=== PATIENT | female | born 2000 | race Caucasian/White ===

== ENCOUNTER 2023-11-16 14:36 | Observation (INO) ==
[2023-11-16] MEDS ORDERED: Lactated Ringers 1000 ml BAG 1,000 ML IV ONE ×2 (15:42→17:18)
[2023-11-16 15:51] LABS: Urine Appearance Cloudy; Urine Bilirubin Negative (Negative); Urine Blood Negative (Negative); Urine Color Yellow; Urine Glucose Negative (Negative); Urine Ketones Trace (Negative); Urine Nitrite Negative (Negative); Urine Protein Negative (Negative); Urine Specific Gravity 1.014 (1.002-1.030); Urine Urobilinogen Negative (Negative)
[2023-11-16 16:23] LABS: Urine Bacteria 1+ (Absent); Urine Red Blood Cell 2+(6-10/hpf) (Absent); Urine Squamous Epithelial Cell Present (Absent); Urine White Blood Cell Trace(0-5/hpf) (Absent)
[2023-11-16 16:31] LABS: ALT 22 U/L (7-52); AST 24 U/L (13-39); Albumin 4.3 g/dL (3.2-5.2); Albumin/Globulin Ratio 1.3 (1-3); Alkaline Phosphatase 47 U/L (35-149); Anion Gap 11 mmol/L (2-16); Blood Urea Nitrogen 8 mg/dL (6-24); C Reactive Protein 110.64 mg/L (<8.01); CO2 Carbon Dioxide 21 mmol/L (22-32); Calcium 8.9 mg/dL (8.6-10.3); Chloride 102 mmol/L (101-111); Creatinine, Serum 0.77 mg/dL (0.51-0.95); Globulin 3.4 g/dL (2-4); Glucose 89 mg/dL (70-100); Lipase 21 U/L (11.0-82.0); Potassium 3.7 mmol/L (3.5-5.0); Sodium 134 mmol/L (135-145); Total Bilirubin 0.6 mg/dL (0.2-1.0); Total Protein 7.7 g/dL (6.4-8.9); eGFR CKD-EPI 113.2 (>60)
[2023-11-16] MEDS ORDERED: HYDROcodone/ACETAMIN 5/325 mg TAB PO ONE (16:47)
[2023-11-16 16:49] LABS: White Blood Count 2.7 10^3/uL (3.8-11.8)
[2023-11-16] MEDS ORDERED: cefTRIAXone 2 gm/50 mL D5W 2 GM/50 ML BAG IV ONE (17:18)
[2023-11-16 17:19] LABS: ABS Lymphocytes 0.5 10^3/uL (1.0-4.8); ABS Monocytes 0.5 10^3/uL (0.0-0.9); ABS Neutrophils 1.8 10^3/uL (1.5-7.6); ABS Nucleated RBC 0.02 10^3/ul; Hematocrit 39.2 % (35-45); Hemoglobin 13.4 g/dL (11.5-14.3); Lymphocyte % 18.3 %; Mean Corpuscular Hemoglobin 29.7 pg (27-33); Mean Corpuscular Hgb Conc 34.3 g/dL (31-36); Mean Corpuscular Volume 86.4 fL (80-97); Mean Platelet Volume 9.4 fL (7.5-11.2); Nucleated Red Blood Cells % 0.6 %/100WBC (0.0-0.8); Platelet Count 99 10^3/uL (150-450); RBC Morphology Normal (Normal); Red Blood Count 4.53 10^6/uL (3.63-4.92); Red Cell Distribution Width 12.8 % (12-17)
[2023-11-16 21:54] LABS: HCG Pregnancy < 0.60 mIU/mL
[2023-11-17] MEDS ORDERED: Lactated Ringers 1000 ml BAG 500 ML IV ONE (05:57)
[2023-11-17 06:11] LABS: Creatine Kinase 58 U/L (10-223)
[2023-11-17 06:43] LABS: Calcium 8.5 mg/dL (8.6-10.3); Creatinine, Serum 0.84 mg/dL (0.51-0.95); Magnesium 1.9 mg/dL (1.9-2.7); Potassium 3.7 mmol/L (3.5-5.0)
[2023-11-17 07:38] LABS: ABS Lymphocytes 0.6 10^3/uL (1.0-4.8); ABS Monocytes 0.3 10^3/uL (0.0-0.9); ABS Neutrophils 0.8 10^3/uL (1.5-7.6); Hematocrit 39.4 % (35-45); Hemoglobin 13.4 g/dL (11.5-14.3); Lymphocyte % 35.7 %; Mean Corpuscular Hemoglobin 29.9 pg (27-33); Mean Platelet Volume 10.2 fL (7.5-11.2); Nucleated Red Blood Cells % 0.2 %/100WBC (0.0-0.8); Platelet Count 85 10^3/uL (150-450); Red Blood Count 4.48 10^6/uL (3.63-4.92); Red Cell Distribution Width 13.1 % (12-17); White Blood Count 1.7 10^3/uL (3.8-11.8)
[2023-11-17] MEDS ORDERED: Piperacillin/Tazobactam 4.5 GM in NS 0.9% 100 ml BAG 100 ML IV ONE (08:00)
[2023-11-17] MEDS ORDERED: Zosyn per Pharmacy NOTE FOLLOW UP SCH (08:00)
[2023-11-17] MEDS: Cefepime 2 GM in Dextrose 2 GM/50 ML BAG IV SCH ×2 (08:31→15:34)
[2023-11-17 10:27] LABS: Erythrocyte Sed Rate 18 mm/Hr (0-19)
[2023-11-17] MEDS ORDERED: cefTRIAXone 1 gm/50 mL D5W 1 GM/50 ML BAG IV SCH (17:00)
[2023-11-17] MEDS ORDERED: Lactated Ringers 1000 ml BAG 1,000 ML IV ONE (18:23)
[2023-11-17] MEDS ORDERED: Ketorolac 10 mg TAB (NF) PO PRN (18:34)
[2023-11-17] MEDS: Senna TAB 8.6 mg TAB PO PRN (19:43)
[2023-11-18] MEDS: Cefepime 2 GM in Dextrose 2 GM/50 ML BAG IV SCH ×2 (00:11→07:59)
[2023-11-18] MEDS: Senna TAB 8.6 mg TAB PO PRN (08:10)
[2023-11-18 08:54] LABS: Hematocrit 38.5 % (35-45); Hemoglobin 13.3 g/dL (11.5-14.3); Mean Corpuscular Hemoglobin 29.8 pg (27-33); Mean Corpuscular Hgb Conc 34.5 g/dL (31-36); Mean Corpuscular Volume 86.4 fL (80-97); Mean Platelet Volume 9.5 fL (7.5-11.2); Platelet Count 87 10^3/uL (150-450); Red Blood Count 4.46 10^6/uL (3.63-4.92); White Blood Count 4.6 10^3/uL (3.8-11.8)
[2023-11-18 09:07] LABS: Calcium 8.6 mg/dL (8.6-10.3); Creatinine, Serum 0.73 mg/dL (0.51-0.95); Magnesium 1.7 mg/dL (1.9-2.7); Phosphorus 3.3 mg/dL (2.5-5.0); Potassium 3.8 mmol/L (3.5-5.0); eGFR CKD-EPI 120.7 (>60)
[2023-11-18 10:18] LABS: ABS Lymphocytes 1.3 10^3/uL (1.0-4.8); ABS Monocytes 0.5 10^3/uL (0.0-0.9); ABS Neutrophils 2.8 10^3/uL (1.5-7.6); ABS Nucleated RBC 0.01 10^3/ul; Lymphocyte % 28.1 %; Nucleated Red Blood Cells % 0.2 %/100WBC (0.0-0.8); RBC Morphology Normal (Normal)
[2023-11-18 10:49] VITALS: BP 115/83
[2023-11-20 23:21] LABS: Anaplasma phagocytophilum Negative (Negative); B. miyamotoi PCR, B Negative (Negative); Babesia divergens/MO-1 Negative (Negative); Babesia ducani Negative (Negative); Ehrlichia chaffeensis Negative (Negative); Ehrlichia ewingii/canis Negative (Negative); Ehrlichia muris eauclairensis Negative (Negative)
== END 2023-11-18 13:44 | disposition home or self-care (01) ==
LOC: ED 14:36 → EDHOLD 14:36 → SUATTDRO 20:28 → MED 22:05
PROVIDERS: ADMIT Internal Medicine; ATTEND Internal Medicine